=== PATIENT | male | born 1960 | race Caucasian/White ===

== ENCOUNTER 2020-10-24 10:00 | Outpatient (CLI) | payer MEDICARE, SELFPAY ==
[2020-10-24 10:20] LABS: Basophils Absolute Auto 0.1 K/mm3 (0.0-0.1); Basophils Percent Auto 0.7 % (0.2-1.2); Eosinophils Absolute Auto 0.3 K/mm3 (0-0.3); Eosinophils Percent Auto 3.6 % (0-4.4); Hematocrit 44.8 % (42.0-52.0); Hemoglobin 14.5 g/dL (14.0-18.0); Immature Granulocyte Absolute 0.06 K/mm3 (0.00-0.031); Immature Granulocyte Percent A 0.7 % (0-0.5); Lymphocytes Absolute Auto 1.38 K/mm3 (0.9-3.2); Lymphocytes Percent Auto 15.4 % (18.3-44.2); Mean Corpuscular HGB Conc 32.4 g/dl (32-36); Mean Corpuscular Hemoglobin 28.5 pg (26-34); Mean Corpuscular Volume 88.2 fl (80-100); Mean Platelet Volume 10.8 fl (7.4-10.4); Monocytes Absolute Auto 0.7 K/mm3 (0.1-0.6); Monocytes Percent Auto 7.5 % (2.6-8.5); Neutrophils Absolute Auto 6.5 K/mm3 (1.3-6.7); Neutrophils Percent Auto 72.1 % (45.5-73.1); Platelet Count Result 208 k/mm3 (150-375); Red Blood Count 5.08 M/mm3 (4.6-6.20); Red Cell Distribution Width 14.7 % (11.5-14.5)
[2020-10-24 12:37] LABS: Alanine Aminotransferase 20 U/L (4-50); Alkaline Phosphatase 68 U/L (38-126); Anion Gap 5 mmol/L (8-16); Aspartate Amino Transferase 19 U/L (17-59); Bilirubin,Total 0.7 mg/dL (0.2-1.3); Blood Urea Nitrogen 18 mg/dL (9-20); Calcium 9.9 mg/dL (8.4-10.2); Carbon Dioxide 35 mmol/L (22-30); Chloride 98 mmol/L (98-107); Estimated Glomerular Filt Rate > 60; Glucose 222 mg/dL (75-110); Sodium 138 mmol/L (137-145)
[2020-10-26 23:15] LABS: Erythropoietin (EPO) 35.2 mIU/mL (2.6-18.5)
== END 2020-10-24 10:01 | disposition home or self-care (01) ==
LOC: ANHLAB 10:02
PROVIDERS: PCP Emergency Medicine; Visit Provider Internal Medicine Hematology & Oncology
DX: D75.1 Secondary polycythemia (principal)
CPT/HCPCS: 36415; 80053; 82668; 85025

== ENCOUNTER 2021-08-10 10:58 | Emergency (ER) | payer MEDICARE, SELFPAY ==
[2021-08-10] VITALS (22 sets, daily range): BP systolic 113–151; BP diastolic 53–100; PULSE 96–121; RESP 15–30; TEMP 36.9; O2SAT 88–100
--- NOTE | ~2021-08-10 | CT_ITS ---
EXAMINATION: CT thoracic lumbar wo con EXAM DATE: 08/10/2021 12:54 INDICATION: Pain, injury . Initial encounter. TECHNIQUE: Spiral CT thoracolumbar spine was performed without contrast. Axial, coronal and sagittal images of the thoracic spine were reviewed. Axial, coronal and sagittal images of the lumbar spine we re reviewed. The dose-length product (DLP) for this examination was 1776.19 mGy-cm. The exposure was tailored according to patient size (auto mA exposure control), and iterative reconstruction (ASIR) w as used as additional dose reduction technique. There is no prior study for comparison. FINDINGS: THORACIC SPINE: There are no acute fractures identified. The vertebral bodies are aligned in the AP d imension. Moderate-sized mid and lower thoracic bridging endplate osteophytes. No posterior rib fract ures. Paraspinal soft tissue is unremarkable. Bilateral perihilar groundglass airspace disease, could be edema or pneumonia. Please clinically correlate. LUMBAR SPINE: Sacroiliac joints intact. There is no evidence of acute lumbar fracture. There is no disc space widening or traumatic vertebral body subluxation suspected. Paraspinal soft tissue is unr emarkable. There is 3 mm retrolisthesis L5 on S1. The vertebral bodies are otherwise aligned. Ther e is mild to moderate lumbar spondylosis without significant central canal or neural foraminal stenos is. A detailed level by level evaluation of spondylosis can be added as addendum if requested. IMPRESSION: 1. No acute thoracolumbar findings. 2. Bilateral perihilar groundglass airspace disease, probably edema or pneumonia, clinical correlati on. Reviewed, dictated and finalized at location A. ERING OVEN OPERATOR IMPRESSION: 1. No acute thoracolumbar findings. 2. Bilateral perihilar groundglass airspace disease, probably edema or pneumon ia, clinical correlation.
--- NOTE | ~2021-08-10 | XR_ITS ---
EXAMINATION: XR chest 2V EXAM DATE: 08/10/2021 14:27 INDICATION: Weakness, Several Falls Within Week, . TECHNIQUE: Portable AP frontal chest x-ray was obtained. Comparison is made to prior examination from 12/12/2015. FINDINGS: Prominent abnormal reticulation again seen in patient with known history of interstitial jakub ng disease. There may be mild progression as compared to 2016. No confluent consolidation, pneumothor ax or pleural effusion suspected. Cardiomediastinal silhouette is normal. There are no osseous abnorm alities identified. IMPRESSION: 1. Chronic abnormal reticulation, interstitial lung disease. 2. No definite superimposed acute process. Reviewed, dictated and finalized at location A. ESS MANAGEMENT DIRECTOR
--- NOTE | 2021-08-10 11:11 | ECG_ITS ---
Measurements Intervals [place] Rate: 107 P: 56 TN: 152 QRS: 42 QRSD: 82 T: 50 QT: 305 QTc: 408 Interpretive Statements SINUS TACHYCARDIA POSSIBLE LEFT ATRIAL ENLARGEMENT MINIMAL Q WAVES- INFERIOR LEADS BASELINE ARTIFACT- I, II, III, AVF, V6 BORDERLINE ECG Electronically Signed On 08-10-2021 11:22:57 TRAVEL CONSULTANT by Jeff Olea D.O.
[2021-08-10 11:33] LABS: Hematocrit 47.4 % (42.0-52.0); Hemoglobin 16.4 g/dL (14.0-18.0); Mean Corpuscular HGB Conc 34.6 g/dl (32-36); Mean Corpuscular Hemoglobin 31.2 pg (26-34); Mean Corpuscular Volume 90.3 fl (80-100); Platelet Count Result 208 k/mm3 (150-375); Red Blood Count 5.25 M/mm3 (4.6-6.20); Red Cell Distribution Width 14.5 % (11.5-14.5); White Blood Count 19.8 K/mm3 (4.5-10.0)
[2021-08-10 11:55] LABS: NT Pro B Type Natriuretic Pept 31 pg/mL (5-100)
[2021-08-10 12:00] LABS: Alanine Aminotransferase 18 U/L (4-50); Alkaline Phosphatase 81 U/L (38-126); Anion Gap 4 mmol/L (8-16); Aspartate Amino Transferase 21 U/L (17-59); Bilirubin,Total 1.5 mg/dL (0.2-1.3); Blood Urea Nitrogen 20 mg/dL (9-20); Calcium 9.7 mg/dL (8.4-10.2); Carbon Dioxide 33 mmol/L (22-30); Chloride 92 mmol/L (98-107); Estimated CRCL calculation 99 ml/min; Estimated Glomerular Filt Rate > 60; Glucose 301 mg/dL (65-110); Potassium 5.1 mmol/L (3.4-5.0); Sodium 129 mmol/L (137-145)
[2021-08-10 12:08] LABS: Band Neutrophils Percent 11 % (0-6); Eosinophils Absolute Manual 0.39 K/mm3 (0.02-0.5); Eosinophils Percent Manual 2 % (0-4); Lymphocytes Absolute Manual 0.79 K/mm3 (1.1-4.5); Monocytes Absolute Manual 0.39 K/mm3 (0.1-0.90); Monocytes Percent Manual 2 % (3-9); Neutrophils Absolute Manual 18.21 K/mm3 (1.3-6.7); Neutrophils Percent Manual 81 % (46-73); Total Cells Counted 100
[2021-08-10 12:22] LABS: Platelet Estimate Adequate (Adequate)
[2021-08-10] MEDS: HYDROcodone/acetaminophen (*CRX) 7.5-325 MG TABLET 1 TAB PO (12:33)
--- NOTE | 2021-08-10 12:43 | ED.BACK ---
HPI - Back Pain/Injury General Chief Complaint: Back Pain/Injury Stated Complaint: back pain Time Seen by Provider: 08/10/21 12:27 Source: patient Mode of arrival: ambulatory Limitations: no limitations History of Present Illness HPI Narrative: Patient is a 61-year-old male complaining of mid and lower back pain after he fell approximately 5 days ago. Patient states his pain is a 9 out of 10, dull, nonradiating, worse with palpation and movement. Patient denies any head, neck, chest, abdomen, pelvis or any extremity pain/injury. Triage says that he hit his head but both patient and denies this. Patient states that he has a history of recurrent falls. Patient also states that he has a history of chronic back pain Related Data Allergies Allergy/AdvReac Type Severity Reaction Status Date / Time No Known Allergies Allergy Unknown Unverified 08/10/21 11:18 Review of Systems Review of Systems: All systems reviewed & are unremarkable except as noted in HPI and below Constitutional: Constitutional: Denies body ache(s), Denies chills, Denies excessive sweating, Denies fatigue, Denies fever(s), Denies headache(s), Denies lethargy, Denies malaise, Denies weakness and Denies weight loss Eyes: Eyes: Denies blurry vision, Denies change in vision and Denies loss of vision ENT: Denies dizziness, Denies ear discharge, Denies headache(s), Denies lip swelling, Denies epistaxis, Denies nasal congestion, Denies neck pain, Denies throat swelling and Denies tongue swelling Cardiovascular: Cardiovascular: Denies chest pain, Denies chest pain at rest, Denies chest pain with activity, Denies diaphoresis, Denies rapid heart rate, Denies edema, Denies irregular heart rhythm, Denies lightheadedness, Denies palpitations, Denies dyspnea and Denies dyspnea on exertion Respiratory: Respiratory: Denies chest congestion, Denies cough, Denies hemoptysis, Denies dyspnea and Denies dyspnea on exertion Gastrointestinal: Gastrointestinal: Denies abdominal pain, Denies melena, Denies hematochezia, Denies diarrhea, Denies nausea, Denies vomiting and Denies hematemesis Musculoskeletal: Musculoskeletal: Denies abnormal gait, Denies deformity, Denies joint swelling, Denies limited range of motion, Denies neck pain and Denies numbness Neurologic: Denies Abnormal speech present, Denies abnormal gait, Denies confusion, Denies dizziness, Denies headache(s), Denies focal weakness, Denies loss of vision, Denies numbness, Denies Other visual disturbances, Denies Sensory deficit (Neuro) and Denies weakness Psychiatric: Psychiatric: Denies confusion, Denies depression, Denies auditory hallucinations, Denies homicidal ideation and Denies suicidal ideation Endocrine: Endocrine: Denies cold intolerance, Denies excessive sweating, Denies fatigue, Denies heat intolerance and Denies palpitations Hematologic/Lymphatic: Hematologic/Lymphatic: Denies easy bleeding and Denies easy bruising Allergic/Immunologic: Allergic/Immunologic: Denies lip swelling, Denies throat swelling and Denies tongue swelling PMFSH Family History Family History (System 07/21/19 @ 15:57 by Carol Bynum) Father Family history of heart disease in male family member before age 55 Mother Family history of heart disease in male family member before age 55 Other Asthma Family history of cataracts Family history of pancreatic cancer Hypertension Social History Social History (System 07/21/19 @ 15:57 by Carol Bynum) Smoking status: Former smoker Alcohol intake: never Comments Past medical history: COPD, hypertension, hyperlipidemia Family history: Hypertension Social history: Positive for smoker, no EtOH or drug use Exam Const: General: cooperative, comfortable, no acute distress, well developed, alert and awake; No confusion Nutritional Appearance: obese Orientation/consciousness: oriented to person, oriented to place, oriented to time, patient oriented x3 and No confusion
[2021-08-10 12:49] LABS: Add Urine Microscopic? YES; Appearance Urine Clear (Clear); Bilirubin Urine Negative (Negative); Blood Urine Negative (Negative); Color Urine Yellow (Yellow); Glucose Urine UA 3+ mg/dL (Negative); Ketones Urine Trace mg/dL (Negative); Leukocyte Esterase Ur Negative LEU/UL (Negative); Mucus Urine Rare /lpf; Nitrate Urine Negative (Negative); Protein Urine 1+ mg/dL (Negative); RBC Urine 0-2 /hpf (0-2); Specific Grav Ur 1.026 (1.001-1.035); Urobilinogen Urine Negative mg/dL (<2.0); WBC Urine 0-3 /hpf
[2021-08-10] MEDS: KETOROLAC 30 MG/ML VIAL (*BKC) IM (14:27)
[2021-08-10] MEDS: diazePAM (*CRX) 5 MG TABLET PO (14:28)
== END 2021-08-10 15:30 | disposition home or self-care (01) ==
PROVIDERS: Emergency Provider Emergency Medicine; PCP Internal Medicine
DX: S29.019A Strain of muscle and tendon of unspecified wall of thorax, initial encounter (principal); S39.012A Strain of muscle, fascia and tendon of lower back, initial encounter; J44.9 Chronic obstructive pulmonary disease, unspecified; I10 Essential (primary) hypertension; E78.5 Hyperlipidemia, unspecified; G89.29 Other chronic pain; Z87.891 Personal history of nicotine dependence; R00.0 Tachycardia, unspecified; R94.31 Abnormal electrocardiogram [ECG] [EKG]; W19.XXXA Unspecified fall, initial encounter
CPT/HCPCS: 36415; 71046; 72128; 72131; 80053; 81001; 83880; 85025; 93005; 96372; 96374; 99284; A9270; J0696; J1885

== ENCOUNTER 2021-11-15 14:05 | Observation (INO) | payer MEDICARE, SELFPAY ==
[2021-11-15] VITALS (12 sets, daily range): BP systolic 120–158; BP diastolic 77–97; PULSE 72–94; RESP 14–21; TEMP 35.6–36.7; O2SAT 93–99; BMI 35.2
--- NOTE | ~2021-11-15 | CT_ITS ---
EXAMINATION: CT brain wo con INDICATION: Headache COMPARISON: None TECHNIQUE: Standard unenhanced head CT. The dose-length product (DLP) was 681.00 mGy-cm. The mA was a djusted according to patient size. Iterative reconstruction technique was employed. FINDINGS: There is no intracranial hemorrhage, acute infarction, or abnormal mass lesion. The ventric les are normal. There is no abnormal mass effect or midline shift. The dunbar-white matter differentiat ion is normal. The basal cisterns are patent. Changes in the globes are likely from ocular lens surge ry. The paranasal sinuses, mastoids and calvarium are normal. IMPRESSION: 1. No acute intracranial abnormality. Reviewed, dictated and finalized at location F. ATOR
--- NOTE | ~2021-11-15 | XR_ITS ---
EXAMINATION: XR chest 2V DATE: 11/15/2021 15:28 INDICATION: Sternal chest pain TECHNIQUE: AP and lateral views of the chest are obtained. COMPARISON: 08/10/2021 FINDINGS: There are chronic opacities of the mid and lower lung zones. No acute airspace opacities ar e identified. The cardiomediastinal silhouette is normal. There is no pleural effusion or pneumothora x. There is mild thoracic spondylosis. IMPRESSION: 1. Chronic lung disease without acute cardiopulmonary abnormality. Reviewed, dictated and finalized at location F. LY PRESERVATION OFFICER
--- NOTE | 2021-11-15 14:23 | ECG_ITS ---
Measurements Intervals [place] Rate: 97 P: 66 NE: 152 QRS: 26 QRSD: 77 T: 61 QT: 335 QTc: 426 Interpretive Statements SINUS RHYTHM POSSIBLE LEFT ATRIAL ENLARGEMENT MINIMAL Q WAVES- INFERIOR LEADS BASELINE ARTIFACT- I, II, III, AVR, AVL, V5-V6 BORDERLINE ECG Electronically Signed On 11-15-2021 14:57:09 LETTERSET PRESS SET UP OPERATOR by Jeff Olea D.O.
[2021-11-15] MEDS: ASPIRIN 81 MG CHEWABLE TABLET 324 MG PO (14:42)
[2021-11-15 14:49] LABS: Basophils Absolute Auto 0.1 K/mm3 (0.0-0.1); Basophils Percent Auto 0.7 % (0.2-1.2); Eosinophils Absolute Auto 0.1 K/mm3 (0-0.3); Eosinophils Percent Auto 1.2 % (0-4.4); Hematocrit 47.7 % (42.0-52.0); Immature Granulocyte Absolute 0.04 K/mm3 (0.00-0.031); Immature Granulocyte Percent A 0.4 % (0-0.5); Lymphocytes Absolute Auto 1.32 K/mm3 (0.9-3.2); Lymphocytes Percent Auto 11.8 % (18.3-44.2); Mean Corpuscular HGB Conc 35.6 g/dl (32-36); Mean Corpuscular Volume 86.9 fl (80-100); Mean Platelet Volume 10.7 fl (7.4-10.4); Monocytes Absolute Auto 0.6 K/mm3 (0.1-0.6); Monocytes Percent Auto 5.2 % (2.6-8.5); Neutrophils Percent Auto 80.7 % (45.5-73.1); Platelet Count Result 203 k/mm3 (150-375); Red Blood Count 5.49 M/mm3 (4.6-6.20); Red Cell Distribution Width 14.2 % (11.5-14.5); White Blood Count 11.2 K/mm3 (4.5-10.0)
--- NOTE | 2021-11-15 14:51 | ED.GENADULT ---
HPI - General Adult General Chief complaint: Shortness of Breath/Dyspnea Stated complaint: headache, chest pain for 1 week Time Seen by Provider: 11/15/21 14:31 Source: patient, family and RN notes reviewed Limitations: no limitations History of Present Illness HPI narrative: 61-year-old male with history of coronary disease presents emerge department for evaluation of 2 weeks of intermittent but worsening chest pain. Patient states over the last 2 weeks he has had intermittent chest pain that does radiate from his chest to his neck down his left arm. Patient states that this had been less frequent but over the last few days it is happening and I referred to. Patient states the pain does feel similar to his previous VT. Patient does have a history of two previous MIs. Patient is on oxygen at home, 3 L nasal cannula at all times. Related Data Home Medications Medication Instructions Recorded Confirmed aspirin 81 mg PO DAILY 11/15/21 11/15/21 clopidogrel 75 mg PO DAILY 11/15/21 11/15/21 ezetimibe 10 mg DAILY 11/15/21 11/15/21 hydrocodone-acetaminophen 1 tablet PO TID PRN 11/15/21 11/15/21 isosorbide mononitrate 30 mg PO DAILY 11/15/21 11/15/21 [id number] [Creon] 1 cap PO TID 11/15/21 11/15/21 lisinopril 10 mg PO DAILY 11/15/21 11/15/21 metformin 1,000 mg PO BID 11/15/21 11/15/21 metoprolol tartrate 25 mg PO BID 11/15/21 11/15/21 prednisone 15 mg PO DAILY 11/15/21 11/15/21 pregabalin 200 mg PO TID 11/15/21 11/15/21 rosuvastatin [Crestor] 20 mg PO HS 11/15/21 11/15/21 Allergies Allergy/AdvReac Type Severity Reaction Status Date / Time nortriptyline Allergy Shakiness Verified 11/15/21 14:29 morphine AdvReac Confusion Verified 11/15/21 14:29 Review of Systems Review of Systems: CONSTITUTIONAL: Denies fever, chills, or sweats. EYES: Denies visual changes, redness, or discharge. ENT: Denies rhinorrhea, congestion, sore throat, or otalgia. CARDIOVASCULAR: Chest pain increasing in frequency and with less and less exertion RESPIRATORY: Denies cough or dyspnea. GASTROINTESTINAL: Denies abdominal pain, nausea, vomiting, or diarrhea. GENITOURINARY: Denies dysuria or hematuria. SKIN: Denies rash or itching. MUSCULOSKELETAL: Denies back pain, joint pain, or myalgia. NEUROLOGIC: Denies headache, numbness, or weakness. All systems reviewed & are unremarkable except as noted in HPI and below PMFSH Past Medical History Medical History (Updated 11/15/21 @ 19:17 by Merna Rainey APRN) Chronic back pain COPD (chronic obstructive pulmonary disease) Coronary disease Diabetes mellitus Dyslipidemia Myocardial infarction Pneumonitis Surgical History Surgical History (Updated 11/15/21 @ 19:13 by Merna Rainey APRN) History of cholecystectomy Family History Family History (System 07/21/19 @ 15:57 by Carol Bynum) Father Family history of heart disease in male family member before age 55 Mother Family history of heart disease in male family member before age 55 Other Asthma Family history of cataracts Family history of pancreatic cancer Hypertension Social History Social History (System 07/21/19 @ 15:57 by Carol Bynum) Smoking packs per day: 0.5 Smoking cigarettes per day: 10.0 Years smoked: 40 Smoking pack-years: 20.00 Smoking status: Former smoker Tobacco type: cigarettes Alcohol intake: never Substance use: never Spiritual care concerns: No Exam Narrative: APPEARANCE: Well appearing, no pain, no distress, well-nourished. HEAD: normocephalic, atraumatic. EYES: PERRLA/EOMI, conjunctivae clear. NOSE: Normal no drainage NECK: Supple. No adenopathy, no masses. RESPIRATORY: Airway patent, respirations nonlabored. Clear to auscultation bilaterally, no rales, rhonchi, wheezing. CARDIOVASCULAR: Regular rate and rhythm without murmurs rubs or gallops. ABDOMINAL: Soft, nontender, nondistended, normal bowel sounds MUSCULOSKELETAL: Moves all extremities. Stre
[2021-11-15 14:59] LABS: INR 0.9; Prothrombin Time 11.3 Seconds (11.1-14.7)
[2021-11-15 15:00] LABS: Partial Thromboplastin Time 27.5 SECONDS (22.3-36.8)
[2021-11-15] MEDS: NITROGLYCERIN SL 0.4 MG TABLET SUBLINGUAL (15:04)
--- NOTE | 2021-11-15 15:04 | PC.NURSE ---
1504 pt recieved 1 0.4 mg nitro sl for cp 4/10 VS 80 HR 131/77 BP 1509 pt. received 1 0.4 mg nitro sl for cp 4/10 VS 95 HR 132/76 BP 1511 pt. received 1 0.4 mg nitro sl for cp 4/10 Vs 95 HR 122/91 BP
[2021-11-15 15:39] LABS: Alanine Aminotransferase 15 U/L (4-50); Albumin Level 4.3 g/dL (3.5-5.1); Alkaline Phosphatase 87 U/L (38-126); Anion Gap 9 mmol/L (8-16); Aspartate Amino Transferase 23 U/L (17-59); Bilirubin,Total 1.5 mg/dL (0.2-1.3); Blood Urea Nitrogen 20 mg/dL (9-20); Calcium 9.4 mg/dL (8.4-10.2); Carbon Dioxide 26 mmol/L (22-30); Chloride 99 mmol/L (98-107); Estimated Glomerular Filt Rate > 60; Glucose 344 mg/dL (65-110); Lipase 49 U/L (23-300); Potassium 4.9 mmol/L (3.4-5.0); Sodium 134 mmol/L (137-145)
[2021-11-15 15:47] LABS: Troponin I < 0.012 ng/mL (0.000-0.034)
[2021-11-15 17:38] LABS: Troponin I < 0.012 ng/mL (0.000-0.034)
--- NOTE | 2021-11-15 18:48 | ADMGEN ---
This patient, Alonzo Ram, was admitted to IMU Room 203-01. Patient/family oriented to hospital policies and general routines including ID bracelet, bed and alarms, visiting hours, pain management, procedures, bathroom and other care routines, personal items, smoking policy, room service/diet, and visiting hours. Information on how to activate the Rapid Response Team has been discussed. Patient/Family are encouraged to report perceived risks to care and to ask questions if they do not understand what they are told or what they should do.
--- NOTE | 2021-11-15 19:04 | PM.IMHP ---
H&P: HPI History of Present Illness Date/Time: Patient was placed observation status for expected length of stay less than 23 hours for management, will plan to re-evaluate tomorrow for improvement. 11/15/21 19:04 Chief Complaint: Chest pain Narrative: Mr. Ram is a 61-year-old gentleman who presented emergency room with complaints of chest discomfort. Patient has a known history of myocardial infarction x2, CAD status post stent placement x8, dyslipidemia, diabetes mellitus, chronic back pain, COPD, and pneumonitis. Patient at baseline was oxygen at 3 L per nasal cannula at home. Patient states today he was at home sitting around and he began having midsternal chest discomfort. Patient states the pain did not radiate anywhere he had no nausea or vomiting, but he did have associated shortness of breath and diaphoresis. Patient felt like he had been punched in the chest by very large gentleman. Patient states he took a nitroglycerin at home without any relief and decided come to the emergency room and he was brought here by private vehicle. Patient states he received aspirin nitro here and his chest discomfort went away. Patient states he has also been having a headache that he is very worried about. Patient states that he has not had any trauma to his head, falls or injury. Patient states he just been getting this frontal headache over the last day or 2. Patient states he is very worried about this. Patient denies any double vision, blurring vision, or visual changes. Patient denies any numbness, weakness, or tingling to extremities. Patient states his gait has remained normal. Patient denies any facial droop or slurring of speech. Review of Systems Review of Systems: A 12 point review of systems was completed patient all pertinent positive and negative per HPI the remainder are unremarkable. [facility] Past Medical History Medical History (Updated 11/15/21 @ 19:17 by Merna Rainey APRN) Chronic back pain COPD (chronic obstructive pulmonary disease) Coronary disease Diabetes mellitus Dyslipidemia Myocardial infarction Pneumonitis Surgical History Surgical History (Updated 11/15/21 @ 19:13 by Merna Rainey APRN) History of cholecystectomy Family History Family History (System 07/21/19 @ 15:57 by Carol Bynum) Father Family history of heart disease in male family member before age 55 Mother Family history of heart disease in male family member before age 55 Other Asthma Family history of cataracts Family history of pancreatic cancer Hypertension Social History Social History (System 07/21/19 @ 15:57 by Carol Bynum) Smoking packs per day: 0.5 Smoking cigarettes per day: 10.0 Years smoked: 40 Smoking pack-years: 20.00 Smoking status: Former smoker Tobacco type: cigarettes Alcohol intake: never Substance use: never Spiritual care concerns: No Meds Home Medications and Allergies Home Medications Medication Instructions Recorded Confirmed Type aspirin 81 mg PO DAILY 11/15/21 11/15/21 History clopidogrel 75 mg PO DAILY 11/15/21 11/15/21 History ezetimibe 10 mg DAILY 11/15/21 11/15/21 History hydrocodone-acetaminophen 1 tablet PO TID PRN 11/15/21 11/15/21 History isosorbide mononitrate 30 mg PO DAILY 11/15/21 11/15/21 History [id number] [Creon] 1 cap PO TID 11/15/21 11/15/21 History lisinopril 10 mg PO DAILY 11/15/21 11/15/21 History metformin 1,000 mg PO BID 11/15/21 11/15/21 History metoprolol tartrate 25 mg PO BID 11/15/21 11/15/21 History prednisone 15 mg PO DAILY 11/15/21 11/15/21 History pregabalin 200 mg PO TID 11/15/21 11/15/21 History rosuvastatin [Crestor] 20 mg PO HS 11/15/21 11/15/21 History Allergies Allergy/AdvReac Type Severity Reaction Status Date / Time nortriptyline Allergy Shakiness Verified 11/15/21 14:29 morphine AdvReac Confusion Verified 11/15/21 14:29 Vital Signs Vital Signs - 24 hr 11/15/21 14:20 11/15
[2021-11-15 20:23] LABS: Troponin I < 0.012 ng/mL (0.000-0.034)
[2021-11-15] MEDS: HYDROcodone/acetaminophen (*CRX) 10-325 MG TABLET 1 TAB PO (22:25)
[2021-11-15] MEDS: ROSUVASTATIN 10 MG TABLET 20 MG PO (22:25)
--- NOTE | 2021-11-15 23:08 | PC.NURSE ---
Patient had been previously told he could not take his monitor off to take a shower but pt decided he was going to shower anyway and was discovered in shower when monitor noted to be off. Spoke with patient after pt got out of shower. Asked the patient to please not take a shower on his own and disregard nursing direction because he could have had a heart attack or and while in shower and without his monitor we would not have been aware. Had to repeat multiple times because patient claimed he could not hear. Pt then states oh, I wouldn't have on ya to which this nurse responded well, you wouldn't have meant to . This nurse then asked pt to please follow nursing direction from this point on and pt grumbled and then stated I'll try and immediately asked for a heating pad. Explained we would call for order.
--- NOTE | 2021-11-15 23:10 | PC.NURSE ---
Patient noted to be off the gambling monitor. Patient found taking a shower even though this nurse told him he shouldn't take off his monitor, and I would have to get a physician's order to take a shower. Patient assisted back to bed and tele monitor was re-applied.
[2021-11-16] VITALS: PULSE 79; O2SAT 99
[2021-11-16 02:00] VITALS: PULSE 71
[2021-11-16 04:00] VITALS: BP 138/66; PULSE 72; PULSE 74; RESP 18; TEMP 35.8; O2SAT 95
[2021-11-16 04:50] LABS: Basophils Absolute Auto 0.1 K/mm3 (0.0-0.1); Basophils Percent Auto 0.5 % (0.2-1.2); Eosinophils Absolute Auto 0.2 K/mm3 (0-0.3); Eosinophils Percent Auto 1.8 % (0-4.4); Hematocrit 44.7 % (42.0-52.0); Hemoglobin 15.6 g/dL (14.0-18.0); Immature Granulocyte Absolute 0.04 K/mm3 (0.00-0.031); Immature Granulocyte Percent A 0.4 % (0-0.5); Lymphocytes Absolute Auto 1.53 K/mm3 (0.9-3.2); Lymphocytes Percent Auto 14.7 % (18.3-44.2); Mean Corpuscular HGB Conc 34.9 g/dl (32-36); Mean Corpuscular Hemoglobin 30.6 pg (26-34); Mean Corpuscular Volume 87.8 fl (80-100); Mean Platelet Volume 10.3 fl (7.4-10.4); Monocytes Absolute Auto 0.6 K/mm3 (0.1-0.6); Monocytes Percent Auto 5.6 % (2.6-8.5); Platelet Count Result 177 k/mm3 (150-375); Red Blood Count 5.09 M/mm3 (4.6-6.20); White Blood Count 10.4 K/mm3 (4.5-10.0)
[2021-11-16 05:03] LABS: Anion Gap 8 mmol/L (8-16); Blood Urea Nitrogen 21 mg/dL (9-20); Calcium 8.8 mg/dL (8.4-10.2); Carbon Dioxide 31 mmol/L (22-30); Chloride 96 mmol/L (98-107); Estimated CRCL calculation 91 ml/min; Estimated Glomerular Filt Rate > 60; Glucose 275 mg/dL (65-110); Potassium 4.3 mmol/L (3.4-5.0); Sodium 135 mmol/L (137-145)
[2021-11-16 06:00] VITALS: PULSE 73
--- NOTE | 2021-11-16 08:00 | PM.DS ---
DS: Admitting Diagnosis Discharge Date 11/16/2021 Admitting Diagnosis (1) Chest pain: (2) Diabetes mellitus: (3) COPD (chronic obstructive pulmonary disease): (4) Tobacco abuse: (5) Headache: DS: Summary Hospital Course Reason for hospitalization: Chest pain Hospital Course: Mr. Ram is a 61-year-old gentleman with a longstanding history of myocardial infarction x2, CAD status post stent placement x8, dyslipidemia, diabetes mellitus, chronic back pain, COPD, and pneumonitis who presented to the emergency department with chest pain. Patient at baseline was oxygen at 3 L per nasal cannula at home. Patient states today he was at home sitting around and he began having midsternal chest discomfort. Patient states the pain did not radiate anywhere he had no nausea or vomiting, but he did have associated shortness of breath and diaphoresis. Patient felt like he had been punched in the chest by very large gentleman. Patient states he took a nitroglycerin at home without any relief and decided come to the emergency room and he was brought here by private vehicle. Patient states he received aspirin nitro here and his chest discomfort went away. Patient states he has also been having a headache that he is very worried about. Patient states that he has not had any trauma to his head, falls or injury. Patient states he just been getting this frontal headache over the last day or 2. Patient states he is very worried about this. Patient denies any double vision, blurring vision, or visual changes. Patient denies any numbness, weakness, or tingling to extremities. Patient states his gait has remained normal. Patient denies any facial droop or slurring of speech. He does have a history of intermittent GERD and has not been on treatment for some time. A basic workup revealed negative troponinX2. EKG was interpreted as SINUS RHYTHM; POSSIBLE LEFT ATRIAL ENLARGEMENT; MINIMAL Q WAVES- INFERIOR LEADS; BASELINE ARTIFACT- I, II, III, AVR, AVL, V5-V6; BORDERLINE ECG. Patient was discharged home on pantoprazole to the care of his PCP and his community bicycle messenger. Time spent discussing smoking cessation with patient: 3 to 10 minutes Status at Discharge Cognitive/behavioral status at discharge: at abseline Functional status at discharge: independent ambulation Overall status at discharge: patient is back to baseline Time Spent with Patient Time attestation: Total time spent providing and/or coordinating discharge services: 28 min Time spent: Less than 30 minutes DS: Data Data Completed and Pending Labs on day of discharge: Labs from last 24 hours 11/16/21 11/16/21 11/15/21 04:15 04:15 19:47 WBC 10.4 H RBC 5.09 Hgb 15.6 Hct 44.7 MCV 87.8 MCH 30.6 MCHC 34.9 RDW 14.0 Plt Count 177 MPV 10.3 Immature Gran % (Auto) 0.4 Neut % (Auto) 77.0 H Lymph % (Auto) 14.7 L [place] % (Auto) 5.6 Eos % (Auto) 1.8 Baso % (Auto) 0.5 Lymph # (Auto) 1.53 [place] # (Auto) 0.6 Eos # (Auto) 0.2 Baso # (Auto) 0.1 Abs Immat Gran (auto) 0.04 H Absolute Neuts (auto) 8.0 H Absolute Nucleated RBC 0.0 Nucleated RBC % 0.0 PT INR APTT Sodium 135 L Potassium 4.3 Chloride 96 L Carbon Dioxide 31 H Anion Gap 8 BUN 21 H Creatinine 0.70 Estim Creat Clear Calc 91 Estimated GFR > 60 Glucose 275 H Calcium 8.8 Total Bilirubin AST ALT Alkaline Phosphatase Troponin I < 0.012 Total Protein Albumin Lipase 11/15/21 11/15/21 11/15/21 16:59 14:44 14:44 WBC RBC Hgb Hct MCV MCH MCHC RDW Plt Count MPV Immature Gran % (Auto) Neut % (Auto) Lymph % (Auto) [place] % (Auto) Eos % (Auto) Baso % (Auto) Lymph # (Auto) [place] # (Auto) Eos # (Auto) Baso # (Auto) Abs Immat Gran (auto) Absolute Neuts (auto) Absolute Nucleated RBC Nucleated RBC % PT 11.3 INR 0.[address]
== END 2021-11-16 08:17 | disposition home or self-care (01) ==
LOC: ANHED 17:31 → ANHIMU 17:53
PROVIDERS: Nurse Practitioner Adult Health; Admitting Provider Internal Medicine; Emergency Provider Emergency Medicine; Visit Provider Internal Medicine
DX: R07.9 Chest pain, unspecified (principal); R51.9 Headache, unspecified; R06.02 Shortness of breath; I25.2 Old myocardial infarction; J44.9 Chronic obstructive pulmonary disease, unspecified; M54.9 Dorsalgia, unspecified; G89.29 Other chronic pain; E11.9 Type 2 diabetes mellitus without complications; E78.5 Hyperlipidemia, unspecified; I25.10 Atherosclerotic heart disease of native coronary artery without angina pectoris; Z79.82 Long term (current) use of aspirin; Z79.02 Long term (current) use of antithrombotics/antiplatelets; Z79.84 Long term (current) use of oral hypoglycemic drugs; Z79.891 Long term (current) use of opiate analgesic; Z87.891 Personal history of nicotine dependence; Z95.5 Presence of coronary angioplasty implant and graft
CPT/HCPCS: 36415; 70450; 71046; 80048; 80053; 83690; 84484; 85025; 85610; 85730; 93005; 99285; A9270; G0378